=== PATIENT | female | born 1965 | race Caucasian/White ===

== ENCOUNTER → 2016-11-22 17:33 | Outpatient (CLI) | payer OTHER ==
[2015-11-17 11:31] VITALS: BMI 22.9
[~2016-11-22 17:33] MED LIST: COZAAR50 MG PO; CRESTOR10 MG PO; CYMBALTA30 MG PO; DEXILANT60 MG PO; EZFE 200200 MG PO; LISINOPRIL10 MG PO; MAGNESIUM OXID500 MG PO; ZANAFLEX4 MG PO
== END | disposition home or self-care (01) ==
LOC: D.US 17:33
DX: M79.602 Pain in left arm (principal); R60.0 Localized edema

== ENCOUNTER → 2017-09-17 15:09 | Outpatient (CLI) | payer OTHER ==
[2015-11-17 11:31] VITALS: BMI 22.9
== END | disposition home or self-care (01) ==
LOC: D.MAMMO 07-24 13:15
DX: Z12.31 Encounter for screening mammogram for malignant neoplasm of breast (principal)

== ENCOUNTER → 2018-07-31 13:36 | Outpatient (CLI) | payer OTHER ==
[2015-11-17 11:31] VITALS: BMI 22.9
== END | disposition home or self-care (01) ==
LOC: D.CT 13:36
DX: R10.2 Pelvic and perineal pain (principal); R10.9 Unspecified abdominal pain; K46.9 Unspecified abdominal hernia without obstruction or gangrene

== ENCOUNTER → 2018-10-27 22:11 | Outpatient (CLI) | payer OTHER ==
[2015-11-17 11:31] VITALS: BMI 22.9
== END | disposition home or self-care (01) ==
LOC: D.MAMMO 14:00
DX: Z12.31 Encounter for screening mammogram for malignant neoplasm of breast (principal)